=== PATIENT | female | born 1965 | race Caucasian/White ===

== ENCOUNTER 2017-07-07 07:51 | Emergency (ER) | payer OTHER ==
[2017-07-07 08:29] VITALS: BP 123/90
--- NOTE | 2017-07-07 08:33 | UC ---
FLU HPI - HPI Summary HPI Summary: PT with sore throat Pt saw PCP on Monday - neg for pna pt Rx flonase, apap, motrin Pt has been doing this since No improvement- came here PT's tested + flu 07/06/17 at PCP + fever + dry heaves + diarrhea + sore throat achiness headache + fever - tmax This AM took antipyretic immunization UTD Pt medication reviewed this visit - History of Current Complaint Chief Complaint: UCRespiratory Stated Complaint: FLU LIKE SXS Hx Obtained From: Patient Hx Last Menstrual Period: 03/06/15 Onset/Duration: Sudden Onset, Lasting Days Severity Currently: Mild Severity Initially: Moderate Pain Intensity: 10 Pain Scale Used: 0-10 Numeric Associated Signs & Symptoms: Positive: Fever, Myalgia, Cough, Nasal Congestion, Headache Related Hx: Possible Flu/Infectious Exposure - Allergy/Home Medications Allergies/Adverse Reactions: Allergies Allergy/AdvReac Type Severity Reaction Status Date / Time No Known Allergies Allergy Verified 07/07/17 08:29 PMH/Surg Hx/FS Hx/Imm Hx Previously Healthy: Yes Cardiovascular History: Hypertension Psychological History: Depression - Surgical History Surgical History: Yes Surgery Procedure, Year, and Place: Tubal Ligation X 2; Nasal Surgery;. cholecystectomy, ablasion, uterine polyps - Family History Known Family History: Positive: Hypertension, Respiratory Disease - asthma - Social History Occupation: Unemployed Lives: With Family Alcohol Use: None Substance Use Type: None Smoking Status (MU): Never Smoked Tobacco Household Exposure Type: Cigarettes Review of Systems Constitutional: Fever, Chills, Fatigue Eyes: Negative ENT: Sore Throat, Nasal Discharge, Sinus Congestion Respiratory: Cough Cardiovascular: Negative Gastrointestinal: Nausea Motor: Negative Neurovascular: Negative Musculoskeletal: Myalgia All Other Systems Reviewed And Are Negative: Yes Physical Exam Triage Information Reviewed: Yes Appearance: Well-Nourished, Other: - fatigue, coarse cough, mild larngitis Vital Signs: Initial Vital Signs Temp 101.1 F 07/07/17 08:21 Pulse 117 07/07/17 08:21 Resp 18 07/07/17 08:21 BP 123/90 07/07/17 08:21 Pulse Ox 98 07/07/17 08:21 Eye Exam: Normal Eyes: Positive: Conjunctiva Clear ENT: Positive: Hearing grossly normal, Pharyngeal erythema, Nasal congestion, TM dull, Uvula midline, Other - pnd Neck exam: Normal Neck: Positive: Supple, Nontender, No Lymphadenopathy Respiratory Exam: Normal Respiratory: Positive: Chest non-tender, Lungs clear, Other: - few scattered wheeze no rhonci no accessory muscles coarse cough Cardiovascular Exam: Normal Cardiovascular: Positive: RRR, No Murmur Abdominal Exam: Normal Abdomen Description: Positive: Nontender, No Organomegaly, Soft Bowel Sounds: Positive: Present Musculoskeletal Exam: Normal Musculoskeletal: Positive: Strength Intact Neurological Exam: Normal Neurological: Positive: Alert Psychological Exam: Normal Skin Exam: Normal Flu Course/Dx - Course Course Of Treatment: Pt with cough, congestion, sore throat, nausea, fever, body ache. + flu. Will Rx tamiflu. secretion precaution. motrin/apap. school note. return precautions - Differential Dx/Diagnosis Provider Diagnoses: influenza Discharge - Sign-Out/Discharge Documenting (check all that apply): Discharge - Discharge Plan Condition: Stable Disposition: HOME Prescriptions: Oseltamivir CAP* [Tamiflu CAP*] 75 mg PO BID #10 cap Patient Education Materials: Influenza (ED) Referrals: ESTEE Adan [Primary Care Provider] - Additional Instructions: - Stay well hydrated. Drink plenty of non-alcoholic, non-caffinated beverages. - Alternate ibuprofen (Advil, Motrin) 600mg and Tylenol every 3 hours for pain or fever. Take with food. Do NOT take for more than 4-5 days. - These infections are spread by secretions - do NOT share eating or drinking utensils - clean items you share with other people such as cell phones, computer mouse, TV remote, computer tablets,etc. Once you start to feel better, change your toothbrush and your pillowcase. - take tamiflu as prescribed until gone - get plenty of restful sleep - humidify the air in the room where you sleep - boil water, run a hot steam shower, vaporizer, cups of water by heat register - okay to take over the counter decongestant and cough medication - contact your doctor or return with questions or concerns - Billing Disposition and Condition Condition: STABLE Disposition: HOME
[2017-07-07] MEDS ORDERED: Acetaminophen TAB* 325 MG PO ONE (08:44)
== END 2017-07-07 09:16 | disposition home or self-care (01) ==
LOC: UCCORT 07:51
DX: J11.1 Influenza due to unidentified influenza virus with other respiratory manifestations (principal); I10 Essential (primary) hypertension; F32.9 Major depressive disorder, single episode, unspecified
CPT/HCPCS: 87502; 99212; A9270-GY; G0463

== ENCOUNTER 2017-07-18 11:32 | Emergency (ER) | payer OTHER ==
[2017-07-18 13:42] VITALS: BP 127/94
--- NOTE | 2017-07-18 13:56 | UC ---
Respiratory Complaint HPI - HPI Summary HPI Summary: 52 yo female has been ill since early June had (-) CXR here 3 kids and as well as herself tested (+) for flu she was given TAMIFLU since then she has continued to have cough and mylagias cough productive no CP or SOB temp low grade no n/v/d - History of Current Complaint Chief Complaint: UCGeneralIllness Stated Complaint: FLU SYMPTOMS Time Seen by Provider: 07/18/17 13:40 Hx Obtained From: Patient Hx Last Menstrual Period: 03/2017 Onset/Duration: Gradual Onset, Lasting Weeks Timing: Constant Severity Initially: Moderate Severity Currently: Moderate Pain Intensity: 6 Pain Scale Used: 0-10 Numeric Character: Cough: Productive Aggravating Factors: Exertion Alleviating Factors: Nothing Associated Signs And Symptoms: Positive: Fever, Chills, Nasal Congestion, Hoarseness - Allergies/Home Medications Allergies/Adverse Reactions: Allergies Allergy/AdvReac Type Severity Reaction Status Date / Time lisinopril Allergy Hives Verified 07/18/17 13:32 Home Medications: Home Medications Multivitamin [Multivitamins] 1 tab PO DAILY 07/18/17 [History Confirmed 07/18/17 ] diphenhydrAMINE HCl [Diphenhydramine HCl] 1 tab PO BEDTIME PRN 07/18/17 [ History Confirmed 07/18/17] PMH/Surg Hx/FS Hx/Imm Hx Previously Healthy: Yes Respiratory History: Bronchitis, Pneumonia Psychological History: Anxiety, Depression - Surgical History Surgical History: Yes Surgery Procedure, Year, and Place: Tubal Ligation X 2; Nasal Surgery;. cholecystectomy, ablasion, uterine polyps - Family History Known Family History: Positive: Cardiac Disease, Hypertension, Diabetes, Respiratory Disease - asthma - Social History Alcohol Use: None Substance Use Type: None Smoking Status (MU): Never Smoked Tobacco Household Exposure Type: Cigarettes Review of Systems Constitutional: Fever, Chills, Fatigue Skin: Negative Eyes: Negative ENT: Nasal Discharge, Sinus Congestion Respiratory: Cough Cardiovascular: Negative Gastrointestinal: Negative Genitourinary: Negative Motor: Negative Neurovascular: Negative Musculoskeletal: Negative Neurological: Negative Is Patient Immunocompromised?: No All Other Systems Reviewed And Are Negative: Yes Physical Exam Triage Information Reviewed: Yes Appearance: Well-Appearing, No Pain Distress, Well-Nourished Vital Signs: Initial Vital Signs Temp 98.9 F 07/18/17 13:35 Pulse 83 07/18/17 13:35 Resp 20 07/18/17 13:35 BP 127/94 07/18/17 13:35 Pulse Ox 96 07/18/17 13:35 Vital Signs Reviewed: Yes Eyes: Positive: Conjunctiva Clear ENT: Positive: Hearing grossly normal, Nasal congestion, TMs normal, Sinus tenderness, Uvula midline. Negative: Nasal drainage, Tonsillar swelling, Tonsillar exudate, Trismus, Muffled voice, Hoarse voice, Dental tenderness Neck: Positive: Supple, Nontender, No Lymphadenopathy Respiratory: Positive: Lungs clear, Normal breath sounds, No respiratory distress, No accessory muscle use Cardiovascular: Positive: RRR, No Murmur. Negative: Tachycardia Musculoskeletal: Positive: ROM Intact, No Edema Neurological: Positive: Alert Psychological Exam: Normal Skin Exam: Normal UC Diagnostic Evaluation - Laboratory O2 Sat by Pulse Oximetry: 96 - normal/not hypoxic Respiratory Course/Dx - Differential Dx/Diagnosis Provider Diagnoses: acute bronchitis. acute sinusitis Discharge - Sign-Out/Discharge Documenting (check all that apply): Discharge - Discharge Plan Condition: Stable Disposition: HOME Prescriptions: Amoxicillin PO (*) [Amoxicillin 875 MG (*)] 875 mg PO BID #20 tab Benzonatate CAP* [Tessalon CAP*] 100 - 200 mg PO TID PRN #28 cap PRN Reason: Cough Patient Education Materials: Acute Bronchitis (ED) Referrals: ESTEE Adan [Primary Care Provider] - 6 Days Additional Instructions: recheck for new or worsening symptoms - Billing Disposition and Condition Condition: STABLE Disposition: HOME
== END 2017-07-18 14:10 | disposition home or self-care (01) ==
LOC: UCCORT 11:32
DX: J20.9 Acute bronchitis, unspecified (principal); J01.90 Acute sinusitis, unspecified; M79.1 Myalgia; Z88.8 Allergy status to other drugs, medicaments and biological substances; Z98.890 Other specified postprocedural states
CPT/HCPCS: 99212; G0463